=== PATIENT | male | born 1965 | race Caucasian/White ===

== ENCOUNTER → 2017-12-05 | Day surgery (SDC) | payer OTHER | LOC: MSO 07:14 | DX: Z12.11 Encounter for screening for malignant neoplasm of colon (principal); Z79.899 Other long term (current) drug therapy; Z87.891 Personal history of nicotine dependence | CPT/HCPCS: 00812; J2704; J3010; J7120 ==

== ENCOUNTER → 2022-03-19 | Outpatient (CLI) | payer BC ==
[2022-03-19 17:19] LABS: BASO # 0.03 K/mm3 (0.02-0.10); EOS # 0.11 K/mm3 (0.04-0.40); EOS % 1.5 % (0.0-4.0); HEMATOCRIT 36.8 % (42.0-52.0); HEMOGLOBIN 11.8 g/dL (13.5-18.0); LYMPH# 2.25 K/mm3 (1.50-4.00); MEAN CELL VOLUME 88 fl (78-100); MEAN CORPUSCULAR HEMOGLOBIN 28 pg (27-31); MEAN CORPUSCULAR HGB CONC 32 g/dL (33-37); MEAN PLATELET VOLUME 9.8 fl (7.4-10.4); MONO # 0.48 K/mm3 (0.20-0.80); NEU # 4.52 K/mm3 (1.40-6.50); PLATELET COUNT 253 K/mm3 (130-400); RED BLOOD COUNT 4.18 M/mm3 (4.20-5.60); RED CELL DISTRIBUTION WIDTH 15.2 % (11.5-14.5); WHITE BLOOD COUNT 7.4 K/mm3 (4.8-10.8)
[2022-03-19 17:23] LABS: ALBUMIN 4.1 g/dL (3.5-5.0)
[2022-03-19 17:24] LABS: CALCIUM 9.8 mg/dL (8.3-10.5)
[2022-03-19 17:25] LABS: TOTAL PROTEIN 6.6 g/dL (6.4-8.3)
[2022-03-19 17:27] LABS: TOTAL BILIRUBIN 0.3 mg/dL (0.2-1.2)
[2022-03-19 18:22] LABS: ERYTHROCYTE SEDIMENTATION RATE 8 mm/hr (0-20)
[2022-03-19 23:26] LABS: TESTOSTERONE 107 ng/dL (221-716)
== END ==
LOC: RAD 16:43
PROVIDERS: Internal Medicine
DX: M51.36 Other intervertebral disc degeneration, lumbar region (principal); G89.29 Other chronic pain; F41.9 Anxiety disorder, unspecified; G47.9 Sleep disorder, unspecified; R20.2 Paresthesia of skin; M75.101 Unspecified rotator cuff tear or rupture of right shoulder, not specified as traumatic; E78.2 Mixed hyperlipidemia; F51.04 Psychophysiologic insomnia; Z12.5 Encounter for screening for malignant neoplasm of prostate; Z00.00 Encounter for general adult medical examination without abnormal findings

== ENCOUNTER → 2022-04-16 | Outpatient (CLI) | payer BC ==
[2022-04-16 23:17] LABS: FOLLICLE STIMULATING HORMONE 2.2 mIU/mL (1.0-12.0); LUTENIZING HORMONE 2.5 mIU/mL (0.6-12.1); PROLACTIN AMS 27.3 ng/mL (3.5-19.4); T3 FREE 2.4 pg/mL (1.7-3.7)
== END ==
LOC: LAB 08:24
PROVIDERS: Internal Medicine
DX: E78.2 Mixed hyperlipidemia (principal); R79.89 Other specified abnormal findings of blood chemistry; D64.9 Anemia, unspecified

== ENCOUNTER → 2023-07-14 | Outpatient (CLI) | payer BC ==
[2023-09-04 13:52] LABS: FOLATE (FOLIC ACID) 17.9
[2023-09-04 13:53] LABS: FOLLICLE STIMULATING HORMONE 2.5; LUTENIZING HORMONE 1.5; PROLACTIN AMS 9.5
[2023-09-04 14:24] LABS: ALBUMIN 4.3 g/dL (3.5-5.0); CALCIUM 9.5 mg/dL (8.3-10.5); TOTAL BILIRUBIN 0.4 mg/dL (0.2-1.2); TOTAL PROTEIN 6.5 g/dL (6.4-8.3)
[2023-09-04 14:28] LABS: BASO # 0.03 K/mm3 (0.02-0.10); EOS # 0.08 K/mm3 (0.04-0.40); EOS % 1.2 % (0.0-4.0); HEMATOCRIT 36.4 % (42.0-52.0); HEMOGLOBIN 11.5 g/dL (13.5-18.0); LYMPH# 2.08 K/mm3 (1.50-4.00); MEAN CELL VOLUME 88 fl (78-100); MEAN CORPUSCULAR HEMOGLOBIN 28 pg (27-31); MEAN CORPUSCULAR HGB CONC 32 g/dL (33-37); MEAN PLATELET VOLUME 10.9 fl (7.4-10.4); MONO # 0.48 K/mm3 (0.20-0.80); NEU # 4.09 K/mm3 (1.40-6.50); PLATELET COUNT 188 K/mm3 (130-400); RED BLOOD COUNT 4.16 M/mm3 (4.20-5.60); RED CELL DISTRIBUTION WIDTH 14.4 % (11.5-14.5); WHITE BLOOD COUNT 6.8 K/mm3 (4.8-10.8)
== END ==
LOC: LAB 12:30
PROVIDERS: Internal Medicine
DX: Z12.5 Encounter for screening for malignant neoplasm of prostate (principal); E78.2 Mixed hyperlipidemia; R20.2 Paresthesia of skin; R79.89 Other specified abnormal findings of blood chemistry; R89.1 Abnormal level of hormones in specimens from other organs, systems and tissues; K90.9 Intestinal malabsorption, unspecified

== ENCOUNTER → 2024-03-01 | Outpatient (CLI) | payer BC | LOC: LAB 12:30 | DX: E23.0 Hypopituitarism (principal) ==